=== PATIENT | male | born 1995 | race Caucasian/White ===

== ENCOUNTER 2019-09-28 11:10 | Emergency (ER) | payer OTHER ==
[~2019-09-28] VITALS: Ht 154.9 cm; Wt 79.4 kg
[2019-09-28] MEDS ORDERED: IBUPROFEN 800 MG TAB PO ONE (15:15)
[2019-09-28 15:27] LABS: BASO # 0.1 10^3/uL (0.0-0.2); BASO % 0.7 % (0.0-1.0); EOS # 0.1 10^3/uL (0.0-0.5); EOS % 1.5 % (0.0-3.0); HEMATOCRIT 44.9 % (42.0-52.0); HEMOGLOBIN 15.4 g/dl (13.5-17.5); LYMPH # 2.5 10^3/uL (1.5-5.0); MEAN CORPUSCULAR HEMOGLOBIN 28.7 pg (27.0-33.0); MEAN CORPUSCULAR HGB CONC 34.3 g/dl (32.0-36.5); MEAN CORPUSCULAR VOLUME 83.8 fl (80.0-96.0); MONO # 0.8 10^3/uL (0.0-0.8); MONO % 10.5 % (0.0-5.0); NEUTROPHILS % 53.9 % (36.0-66.0); PLATELET COUNT, AUTOMATED 304 10^3/uL (150-450); RED BLOOD COUNT 5.36 10^6/uL (4.30-6.10); WHITE BLOOD COUNT 7.5 10^3/uL (4.0-10.0)
--- NOTE | 2019-09-28 15:34 | REP ---
CT brain: 09/28/2019. Indication: Headache. Comparison: None. Findings: There is no acute intracranial hemorrhage, acute cortical infarction, mass effect, hydrocephalus or significant fluid within the visualized paranasal sinuses/mastoid air cells. Impression: No acute intracranial process. Electronically Signed by Haja Balbuena DO 09/28/2019 03:26 P
[2019-09-28 16:23] LABS: ERYTHROCYTE SEDIMENTATION RATE 4 mm/hr (0-15)
[2019-09-28 16:40] VITALS: BP 147/81
== END 2019-09-28 16:50 | disposition home or self-care (01) ==
LOC: M ED 11:10
DX: G44.229 Chronic tension-type headache, not intractable (principal); F07.81 Postconcussional syndrome

== ENCOUNTER 2020-01-13 16:44 | Emergency (ER) | payer OTHER ==
[~2020-01-13] VITALS: Ht 180.3 cm; Wt 82.9 kg
[2020-01-13] MEDS ORDERED: KETOROLAC 30 MG/ML 1ML VIAL IV ONE (17:15)
[2020-01-13] MEDS ORDERED: ACETAMINOPHEN 500 MG TAB PO ONE (17:15)
[2020-01-13] MEDS ORDERED: NS 1,000 ML IV ONE (17:15)
[2020-01-13] MEDS ORDERED: ONDANSETRON 4MG/2ML VIAL IV ONE (17:15)
[2020-01-13 17:28] LABS: BASO % 0.4 % (0.0-1.0); EOS # 0.1 10^3/uL (0.0-0.5); EOS % 0.5 % (0.0-3.0); HEMATOCRIT 49.1 % (42.0-52.0); HEMOGLOBIN 16.8 g/dl (13.5-17.5); LYMPH # 1.3 10^3/uL (1.5-5.0); LYMPH % 14.1 % (24.0-44.0); MEAN CORPUSCULAR HEMOGLOBIN 28.9 pg (27.0-33.0); MEAN CORPUSCULAR HGB CONC 34.2 g/dl (32.0-36.5); MEAN CORPUSCULAR VOLUME 84.5 fl (80.0-96.0); MONO # 0.6 10^3/uL (0.0-0.8); MONO % 6.7 % (0.0-5.0); NEUTROPHILS # 7.2 10^3/uL (1.5-8.5); NEUTROPHILS % 77.8 % (36.0-66.0); PLATELET COUNT, AUTOMATED 332 10^3/uL (150-450); RED BLOOD COUNT 5.81 10^6/uL (4.30-6.10); WHITE BLOOD COUNT 9.2 10^3/uL (4.0-10.0)
[2020-01-13 17:52] LABS: ALBUMIN 4.7 GM/DL (3.2-5.2); ALT/SGPT 30 U/L (12-78); BILIRUBIN,DIRECT 0.2 MG/DL (0.0-0.2); BILIRUBIN,TOTAL 0.8 MG/DL (0.2-1.0); BLOOD UREA NITROGEN 12 MG/DL (7-18); CALCIUM LEVEL 9.9 MG/DL (8.5-10.1); CARBON DIOXIDE LEVEL 28 MEQ/L (21-32); CHLORIDE LEVEL 104 MEQ/L (98-107); CREATININE FOR GFR 1.32 MG/DL (0.70-1.30); GLOMERULAR FILTRATION RATE > 60.0 (>60); GLUCOSE, FASTING 93 MG/DL (70-100); LIPASE 59 U/L (73-393); SODIUM LEVEL 139 MEQ/L (136-145); TOTAL PROTEIN 8.9 GM/DL (6.4-8.2)
[2020-01-13 19:21] VITALS: BP 142/78
== END 2020-01-13 19:24 | disposition home or self-care (01) ==
LOC: M ED 16:44
DX: G43.909 Migraine, unspecified, not intractable, without status migrainosus (principal); R94.5 Abnormal results of liver function studies; Z87.828 Personal history of other (healed) physical injury and trauma
CPT/HCPCS: 36415; 80048; 80076; 83690; 85025; 96360; 96375; 99284; J1885; J2405

== ENCOUNTER 2020-12-18 12:06 | Emergency (ER) | payer OTHER ==
[~2020-12-18] VITALS: Ht 188 cm; Wt 86.5 kg
[2020-12-18] MEDS ORDERED: MELA3TAB30 (12:35)
[2020-12-18] MEDS ORDERED: RIZA5TAB (12:35)
[2020-12-18 13:24] VITALS: BP 153/82
== END 2020-12-18 13:31 | disposition home or self-care (01) ==
LOC: M ED 12:06
DX: S62.502A Fracture of unspecified phalanx of left thumb, initial encounter for closed fracture (principal); W23.0XXA Caught, crushed, jammed, or pinched between moving objects, initial encounter; Y92.310 Basketball court as the place of occurrence of the external cause; Y93.67 Activity, basketball; Z79.899 Other long term (current) drug therapy